=== PATIENT | female | born 1935 | race Two or more races ===

== ENCOUNTER 2017-06-02 15:05 | Inpatient (IN) | payer MEDICARE, MEDICAID ==
[~2017-06-02] VITALS: Ht 167.6 cm; Wt 95.0 kg
--- NOTE | 2017-06-02 15:05 | NUR ---
SENT BY PMD DR SOLE CORREA TIA R FACIAL WEAKNESS AND LEFT LEG WEAKNESS C/O CP X1 MONTH. PLACED ON MONITOR. AWAITING MD ORDER
[2017-06-02 15:47] LABS: BASOPHILS # (AUTO) 0.1 /CMM (0.0-0.2); EOSINOPHILS # (AUTO) 0.3 /CMM (0.0-0.7); EOSINOPHILS % (AUTO) 4.9 % (0.0-6.0); HEMATOCRIT 39 % (33-45); HEMOGLOBIN 13.4 g/dL (11.5-14.8); LYMPHOCYTES # (AUTO) 1.6 /CMM (0.8-4.8); LYMPHOCYTES % (AUTO) 27.9 % (20.0-44.0); MEAN CORPUSCULAR HEMOGLOBIN 28 PG (26.0-33.0); MEAN CORPUSCULAR HGB CONC 34 g/dl (31.0-36.0); MEAN CORPUSCULAR VOLUME 83 fL (82-100); MONOCYTES # (AUTO) 0.4 /CMM (0.1-1.30); MONOCYTES % (AUTO) 6.6 % (2.0-12.0); NEUTROPHILS # (AUTO) 3.5 /CMM (1.8-8.9); NEUTROPHILS % (AUTO) 58.6 % (43.0-81.0); PLATELET COUNT (AUTO) 278 /CMM (150-450); RDW COEFFICIENT OF VARIATION 12.1 (11.5-15.0); RED BLOOD CELL COUNT(AUTO) 4.72 MIL/uL (4.0-5.2); WHITE BLOOD COUNT (AUTO) 5.9 K/uL (4.3-11.0)
[2017-06-02 16:00] LABS: CARBON DIOXIDE 27 mmol/L (21-32); CHLORIDE 105 mmol/L (98-107); CREATININE 0.8 mg/dL (0.6-1.3); GLUCOSE 102 mg/dL (74-106); POTASSIUM 4.5 mmol/L (3.5-5.1); SODIUM SERUM 139 mmol/L (136-145); UREA NITROGEN, BLOOD 14 mg/dL (7-18)
[2017-06-02 16:01] LABS: INR 0.91 (0.87-1.13); PROTHROMBIN TIME 9.5 SECS (9.5-12.7)
[2017-06-02 16:09] LABS: TROPONIN I < 0.017 ng/mL (0.00-0.056)
[2017-06-02] MEDS ORDERED: ASPIRIN 325 MG TABLET PO ONE (16:30)
--- NOTE | 2017-06-02 16:33 | NUR ---
CALLED DR Barker CELL PHONE LEFT A VOICEMAIL.
[2017-06-02] MEDS ORDERED: ASPIRIN 325 MG TABLET ONE (17:08)
--- NOTE | 2017-06-02 17:14 | NUR ---
PANEL ON-CALL PAGED AGAIN
--- NOTE | 2017-06-02 17:22 | NUR ---
PANEL ON-CALL PAGED AGAIN
--- NOTE | 2017-06-02 17:31 | NUR ---
CALLED DR ALDRIDGE ON THE PHONE WITH DR EDWARD.
--- NOTE | 2017-06-02 17:54 | NUR ---
CALLED NURSING SUP FOR BED [id number]
[2017-06-02] MEDS ORDERED: ASPI-1152 PO (18:16)
[2017-06-02] MEDS ORDERED: TRAM50TA2 PO (18:16)
[2017-06-02] MEDS ORDERED: EZET10TA14 PO (18:16)
[2017-06-02] MEDS ORDERED: ROSU10TA25 PO (18:16)
[2017-06-02] MEDS ORDERED: DONE10TA44 PO (18:16)
[2017-06-02] MEDS ORDERED: CYCL30DR EACHEYE (18:16)
[2017-06-02] MEDS ORDERED: PRAM0.258 PO (18:16)
[2017-06-02] MEDS ORDERED: ESOM40CA52 PO (18:16)
[2017-06-02] MEDS ORDERED: RALO60TA14 PO (18:16)
[2017-06-02] MEDS ORDERED: FLUO-120 PO (18:16)
[2017-06-02] MEDS ORDERED: LORA0.5T PO (18:16)
[2017-06-02] MEDS ORDERED: UMEC1BLS IH (18:16)
[2017-06-02] MEDS ORDERED: MECL-138 PO (18:16)
[2017-06-02] MEDS ORDERED: PREG75CA PO (18:16)
[2017-06-02] MEDS ORDERED: MEMA10TA21 PO (18:16)
[2017-06-02] MEDS ORDERED: TOLT4CAP PO (18:16)
--- NOTE | 2017-06-02 18:17 | NUR ---
CALLED NURSING SUP FOR BED
--- NOTE | 2017-06-02 18:31 | NUR ---
REPORT GIVEN TO KEYANA. PT AWAITING TRANSFER TO FLOOR.
[2017-06-02 20:00] VITALS: BP 150/82
--- NOTE | 2017-06-02 21:20 | NUR ---
MS RN INITIAL NOTES RECEIVED PT ALERT, ORIENTED X4, VERBALLY RESPONSIVE,ON ROOM AIR,NO SOB,NO APPARENT DISTRESS NOTED. DENIES ANY PAIN OR DISCOMFORT AT THIS TIME.IV SITE RT HAND INTACT,PATENT,NO S/SX OF INFILTRATION NOTED. ATTENDED ALL NEEDS,CALL LIGHT WITHIN REACH.WILL CONTINUE TO MONITOR ACCORDINGLY.
--- NOTE | 2017-06-02 21:30 | NUR ---
MS RN NOTES SPOKE WITH DR WHIPPLE, VERIFIED ADMISSION ORDERS, NOTED AND CARRIED OUT.
[2017-06-02 22:00] VITALS: BP 150/82
--- NOTE | 2017-06-02 22:00 | NUR ---
MS RN NOTES SINUS BRADYCARDIA 56.WILL CONTINUE TO MONITOR
[2017-06-03] VITALS: BP 116/61
[2017-06-03] MEDS ORDERED: IPRATROPIUM NEB FS 0.5 MG/2.5 ML AMPUL.NEB ONE (01:25)
[2017-06-03] MEDS ORDERED: ALBUTEROL FS 2.5 MG/0.5 ML VIAL.NEB ONE (01:25)
[2017-06-03] MEDS: IPRATROPIUM NEB FS 0.5 MG/2.5 ML AMPUL.NEB NEB SCH ×4 (01:27→22:48)
[2017-06-03] MEDS: ALBUTEROL FS 2.5 MG/0.5 ML VIAL.NEB NEB SCH ×4 (01:27→22:48)
[2017-06-03 04:00] VITALS: BP 136/66
--- NOTE | 2017-06-03 06:28 | NUR ---
MS RN CLOSING NOTES PT IN BED AWAKE,VERBALLY RESPONSIVE, ON ROOM AIR,NO SOB NOTED.DENIES ANY PAIN OR DISCOMFORT AT THIS TIME.. IV SITE RT HAND INTACT,PATENT, NO S/SX OF INFILTRATION NOTED. CALL LIGHT WITHIN REACH,WILL CONTINUE TO MONITOR ACCORDINGLY.
[2017-06-03 07:08] LABS: BASOPHILS % (AUTO) 0.9 % (0.0-2.0); EOSINOPHILS # (AUTO) 0.3 /CMM (0.0-0.7); EOSINOPHILS % (AUTO) 6.6 % (0.0-6.0); HEMATOCRIT 39 % (33-45); HEMOGLOBIN 12.9 g/dL (11.5-14.8); LYMPHOCYTES # (AUTO) 1.5 /CMM (0.8-4.8); LYMPHOCYTES % (AUTO) 29.9 % (20.0-44.0); MEAN CORPUSCULAR HEMOGLOBIN 28 PG (26.0-33.0); MEAN CORPUSCULAR HGB CONC 34 g/dl (31.0-36.0); MEAN CORPUSCULAR VOLUME 84 fL (82-100); MONOCYTES # (AUTO) 0.4 /CMM (0.1-1.30); MONOCYTES % (AUTO) 7.3 % (2.0-12.0); NEUTROPHILS # (AUTO) 2.7 /CMM (1.8-8.9); NEUTROPHILS % (AUTO) 55.3 % (43.0-81.0); PLATELET COUNT (AUTO) 253 /CMM (150-450); RDW COEFFICIENT OF VARIATION 12.9 (11.5-15.0); WHITE BLOOD COUNT (AUTO) 4.9 K/uL (4.3-11.0)
--- NOTE | 2017-06-03 07:30 | NUR ---
CHEERLEADING COACH: INITIAL NOTE RECEIVED PT A/OX4. SERBIAN SPEAKING. ON TELE MONITORING SINUS BRADYCARDIA AT 56 BPM. CONTINENT AND AMBULATORY WITH OUT ASSIST. SKIN INTACT. ON CARDIAC DIET. RT HAND #22 SL. NO IV FLUIDS RUNNING. SITE CLEAR AND PATENT. NO SOB NOTED. NO CHEST PAIN NOTED. NO DISTRESS NOTED. RESTING COMFORTABLY IN BED. CALL LIGHT WITHIN REACH.
[2017-06-03 07:34] LABS: ALANINE AMINOTRANSFERASE 41 U/L (12-78); ALBUMIN 3.6 g/dL (3.4-5.0); ALKALINE PHOSPHATASE 59 U/L (46-116); ASPARTATE AMINOTRANSFERASE 26 U/L (15-37); BILIRUBIN,TOTAL 0.6 mg/dL (0.2-1.0); CALCIUM, SERUM 8.8 mg/dL (8.5-10.1); CARBON DIOXIDE 28 mmol/L (21-32); CHLORIDE 108 mmol/L (98-107); CREATININE 0.8 mg/dL (0.6-1.3); GLUCOSE 85 mg/dL (74-106); MAGNESIUM 1.9 mg/dL (1.8-2.4); POTASSIUM 3.4 mmol/L (3.5-5.1); SODIUM SERUM 145 mmol/L (136-145); TOTAL PROTEIN, SERUM 6.8 g/dL (6.4-8.2); UREA NITROGEN, BLOOD 14 mg/dL (7-18)
[2017-06-03 07:43] LABS: CHOLESTEROL 261 mg/dL (<200); HDL CHOLESTEROL 39 mg/dL (40-60); IRON, SERUM 100 ug/dl (50-175); LDL 190 mg/dL (0-99); THYROID STIMULATING HORMONE 3.495 uIU/mL (0.358-3.74); TRIGLYCERIDES 97 mg/dL (30-150)
[2017-06-03 07:45] LABS: C-REACTIVE PROTEIN < 0.2 mg/dL (0.0-0.9)
[2017-06-03 08:00] VITALS: BP 147/72
[2017-06-03] MEDS ORDERED: LORAZEPAM 0.5 MG TABLET PO PRN (08:00)
[2017-06-03] MEDS ORDERED: TRAMADOL HCL 50 MG TABLET PO PRN (08:00)
[2017-06-03] MEDS ORDERED: ACETAMINOPHEN ES 500 MG TABLET PO PRN (08:30)
[2017-06-03] MEDS: PRAMIPEXOLE DI-HCL 0.25 MG TABLET PO SCH (08:35)
[2017-06-03] MEDS: EZETIMIBE 10 MG TABLET PO SCH (08:35)
[2017-06-03] MEDS: DONEPEZIL 5 MG TABLET PO SCH (08:35)
[2017-06-03] MEDS: RALOXIFENE 60 MG TABLET PO SCH (08:35)
[2017-06-03] MEDS: ASPIRIN EC 81 MG TABLET.DR PO SCH (08:35)
[2017-06-03] MEDS: Fluoxetine 10 mg capsule PO SCH (08:35)
[2017-06-03] MEDS: TOLTERODINE 2 MG TABLET PO SCH (08:42)
[2017-06-03] MEDS: MEMANTINE HCL 5 MG TABLET PO SCH ×2 (08:42→16:49)
[2017-06-03] MEDS ORDERED: MECLIZINE HCL 25 MG TABLET PO PRN (09:00)
[2017-06-03] MEDS ORDERED: ATORVASTATIN 10 MG TABLET PO SCH (09:00)
[2017-06-03] MEDS ORDERED: Medication Not On Formulary EA (Umeclidinium Brm/Vilanterol Tr (Anoro Ellipta 62.5-25 Mc IH SCH (09:00)
[2017-06-03] MEDS ORDERED: Medication Not On Formulary EA (Cyclosporine (Restasis) 1 DROP) EACHEYE SCH (09:00)
[2017-06-03] MEDS ORDERED: POTASSIUM CHLORIDE 20 MEQ TAB.PRT.SR PO SCH (11:00)
[2017-06-03 16:00] VITALS: BP 137/66
--- NOTE | 2017-06-03 18:44 | NUR ---
MS RN: CLOSING NOTE PT A/OX4. GRENADIAN SPEAKING. UNDERSTANDS SOME IVORIAN. TOOK ALL MEDICATIONS ON TIME. NO ADVERSE REACTIONS NOTED. NO PAIN NOTED. NO SOB NOTED. NO CHEST PAIN NOTED. NO WEAKNESS NOTED. ABLE TO AMBULATE INDEPENDENTLY. COMPLETING ADLS INDEPENDENTLY. CONTINENT. SKIN INTACT. RT HAND #18 SL. SITE CLEAR AND PATENT. NO IV FLUIDS RUNNING. RESTING COMFORTABLY IN BED. CALL LIGHT WITHIN REACH.
--- NOTE | 2017-06-03 19:34 | NUR ---
MS RN INITIAL NOTES RECEIVED PT IN BED, AWAKE,ALERT,ORIENTED X 4 VERBALLY RESPONSIVE, [place] SPEAKING.ON ROOM AIR, NO SOB,NO APPARENT DISTRESS NOTED. DENIES ANY CHEST PAIN, NO COMPLAIN OF WEAKNESS. IV SITE RT HAND INTACT,NO S/SX OF INFILTRATION NOTED CALL LIGHT WITHIN REACH. WILL CONTINUE TO MONITOR ACCORDINGLY.
[2017-06-03 20:00] VITALS: BP 145/83
[2017-06-03 20:39] VITALS: BP 145/83
[2017-06-03] MEDS ORDERED: PREGABALIN 25 MG CAPSULE PO SCH (22:00)
--- NOTE | 2017-06-04 07:19 | NUR ---
MS RN CLOSING NOTES PT IN BED ALERT, VERBALLY RESPONSIVE,ON ROOM AIR, DENIES ANY DISCOMFORT.ATTENDED ALL NEEDS.CALL LIGHT WITHIN REACH
[2017-06-04] MEDS ORDERED: PANTOPRAZOLE 40 MG TABLET.DR PO SCH (07:30)
--- NOTE | 2017-06-04 07:33 | NUR ---
MS RN OPENING NOTE PATIENT IS ALERT AND ORIENTED X4. NO PAIN AT THIS TIME. NO SOB OR DISTRESS NOTED. ABLE TO COMMUNICATE NEEDS. CALL LIGHT WITHIN REACH. SAFETY MEASURES IMPLEMENTED. ON ROOM AIR TOLERATING WELL. BRP. ON 2GM SODIUM CARDIAC DIET. RIGHT HAND IV INTACT AND PATENT NO REDNESS OR SWELLING NOTED. AWAITING FOR MRI OF THE HEAD, AND CAROTID DOPPLER TODAY. ALSO AWAITING PT EVAL. SEEN BY DR. LAFLEUR. WILL CONTINUE TO MONITOR THROUGHOUT SHIFT.
[2017-06-04] MEDS: ALBUTEROL FS 2.5 MG/0.5 ML VIAL.NEB NEB SCH (07:34)
[2017-06-04] MEDS: IPRATROPIUM NEB FS 0.5 MG/2.5 ML AMPUL.NEB NEB SCH (07:34)
[2017-06-04 08:00] VITALS: BP 150/70
[2017-06-04] MEDS: EZETIMIBE 10 MG TABLET PO SCH (08:11)
[2017-06-04] MEDS: ASPIRIN EC 81 MG TABLET.DR PO SCH (08:12)
[2017-06-04] MEDS: Fluoxetine 10 mg capsule PO SCH (08:12)
[2017-06-04] MEDS: PRAMIPEXOLE DI-HCL 0.25 MG TABLET PO SCH (08:12)
[2017-06-04] MEDS: MEMANTINE HCL 5 MG TABLET PO SCH (08:12)
[2017-06-04] MEDS: DONEPEZIL 5 MG TABLET PO SCH (08:12)
[2017-06-04] MEDS: RALOXIFENE 60 MG TABLET PO SCH (08:13)
[2017-06-04] MEDS: TOLTERODINE 2 MG TABLET PO SCH (08:13)
[2017-06-04] MEDS ORDERED: TRAM50TA2 PO (09:14)
[2017-06-04] MEDS ORDERED: ASPI-1152 PO (09:14)
[2017-06-04] MEDS ORDERED: ATOR40TA PO (09:14)
[2017-06-04] MEDS ORDERED: PREG25CA PO (09:14)
[2017-06-04] MEDS ORDERED: TOLT2TAB2 PO (09:14)
[2017-06-04] MEDS ORDERED: FLUO-119 PO (09:14)
[2017-06-04] MEDS ORDERED: MECL-102 PO (09:14)
[2017-06-04] MEDS ORDERED: LORA0.5T PO (09:14)
[2017-06-04] MEDS ORDERED: PANT40TA2 PO (09:14)
[2017-06-04] MEDS ORDERED: PRAM0.253 PO (09:14)
[2017-06-04] MEDS ORDERED: ACET-2605 PO (09:14)
[2017-06-04] MEDS ORDERED: RALO60TA PO (09:14)
[2017-06-04] MEDS ORDERED: MEMA5TAB PO (09:14)
[2017-06-04] MEDS ORDERED: DONE5TAB7 PO (09:14)
[2017-06-04] MEDS ORDERED: EZET10TA13 PO (09:14)
--- NOTE | 2017-06-04 15:26 | NUR ---
MS DATABASE SECURITY ADMINISTRATOR NOTE PATIENT IS ALERT AND ORIENTED x4. NO PAIN AT THIS TIME. NO SOB OR DISTRESS NOTED. CALL LIGHT WITHIN REACH AT ALL TIMES. SAFETY MEASURES IMPLEMENTED. ABLE TO COMMUNICATE NEEDS. ALL DUE MEDICATIONS GIVEN ORDERED. ALL DISCHARGE INSTRUCTIONS GIVEN TO PATIENT AND VERBAL TEACH BACK RECEIVED. AMBULATORY. IV REMOVED, SKIN INTACT. ALL BELONGINGS WITH PATIENT UPON DISCHARGE AND ACCOUNTED FOR. PATIENT ACCOMPANIED BY NURSE SAFELY, PATIENT REQUESTED TO WALK TO HOUSE NEARBY.
[2017-06-04] MEDS ORDERED: ATORVASTATIN 40 MG TABLET PO SCH (18:00)
== END 2017-06-04 15:25 | disposition home or self-care (01) | DRG 69 ==
LOC: ER 15:08 → TELE 18:29 → MED 06-03 09:54
PROVIDERS: ADMIT Family Medicine; ATTEND Family Medicine
DX: G45.9 Transient cerebral ischemic attack, unspecified (principal); E11.42 Type 2 diabetes mellitus with diabetic polyneuropathy; I11.0 Hypertensive heart disease with heart failure; I50.9 Heart failure, unspecified; F03.90 Unspecified dementia, unspecified severity, without behavioral disturbance, psychotic disturbance, mood disturbance, and anxiety; E78.5 Hyperlipidemia, unspecified; I25.10 Atherosclerotic heart disease of native coronary artery without angina pectoris; K21.9 Gastro-esophageal reflux disease without esophagitis; J45.909 Unspecified asthma, uncomplicated; M85.80 Other specified disorders of bone density and structure, unspecified site; R32 Unspecified urinary incontinence; Z86.73 Personal history of transient ischemic attack (TIA), and cerebral infarction without residual deficits; Z91.14 Patient's other noncompliance with medication regimen; Z82.49 Family history of ischemic heart disease and other diseases of the circulatory system; J30.9 Allergic rhinitis, unspecified; J44.9 Chronic obstructive pulmonary disease, unspecified; K29.70 Gastritis, unspecified, without bleeding; Z86.718 Personal history of other venous thrombosis and embolism; Z79.82 Long term (current) use of aspirin; F43.10 Post-traumatic stress disorder, unspecified; G47.33 Obstructive sleep apnea (adult) (pediatric); E66.9 Obesity, unspecified; Z68.33 Body mass index [BMI] 33.0-33.9, adult
CPT/HCPCS: 36415; 70450-TC; 70551-TC; 71010-TC; 72040-TC; 72070-TC; 72100-TC; 73030-TC; 80048-TC; 80053-TC; 80061-TC; 83540-TC; 83735-TC; 84443-TC; 84484-TC; 85025-TC; 85378-TC; 85652-TC; 85730-TC; 86140-TC; 87081-TC; 93307-TC; A4606; J8597; Z7610